=== PATIENT | female | born 1970 | race Caucasian/White ===

== ENCOUNTER 2016-11-01 10:48 | Emergency (ER) | payer MEDICAID ==
[~2016-11-01] VITALS: Ht 149.9 cm; Wt 72.6 kg
[2016-11-01 12:23] LABS: microscopic required? YES; urine erythrocyte TRACE (NEGATIVE)
[2016-11-01 12:24] LABS: BASOPHIL % 0.6 % (0-2); PLATELET COUNT 333 x10^3mcL (130-400)
[2016-11-01 12:40] LABS: CALCIUM 8.8 mg/dL (8.5-10.1); CARBON DIOXIDE 26.2 mmol/L (21-32); CHLORIDE SERUM 109 mmol/L (98-107); CREATININE SERUM 0.8 mg/dL (0.6-1.0); GFR1 > 60 mL/min; GLUCOSE SERUM 94 mg/dL (74-106); POTASSIUM SERUM 4.2 mmol/L (3.5-5.1); RED CELL DISTRIBUTION WIDTH 16.7 % (11.5-14.5); SODIUM SERUM 144 mmol/L (136-145)
[2016-11-01 12:44] LABS: ALBUMIN 3.4 g/dL (3.4-5.0); ALKALINE PHOSPHATASE 57 U/L (46-116); ALT/SGPT 26 U/L (14-59); AMYLASE 87 U/L (25-115); AST/SGOT 20 U/L (15-37); BILIRUBIN TOTAL 0.41 mg/dL (0.20-1.00); LIPASE 299 IU/L (73-393); TOTAL PROTEIN, SERUM 7.7 g/dL (6.4-8.2)
[2016-11-01 16:30] VITALS: BP 135/74
== END 2016-11-01 16:30 | disposition home or self-care (01) ==
LOC: ED 10:48
PROVIDERS: Emergency Medicine
DX: R10.30 Lower abdominal pain, unspecified (principal); Z88.5 Allergy status to narcotic agent
CPT/HCPCS: J1885; J2405; J3010; Q9967

== ENCOUNTER 2016-11-08 06:44 | Emergency (ER) | payer MEDICAID ==
[~2016-11-08] VITALS: Ht 149.9 cm; Wt 71.7 kg
[2016-11-08 08:07] VITALS: BP 147/75
== END 2016-11-08 08:07 | disposition home or self-care (01) ==
LOC: ED 06:44
DX: T78.40XA Allergy, unspecified, initial encounter (principal); R03.0 Elevated blood-pressure reading, without diagnosis of hypertension; Z88.5 Allergy status to narcotic agent; X58.XXXA Exposure to other specified factors, initial encounter

== ENCOUNTER 2017-12-26 12:52 | Emergency (ER) | payer MEDICAID ==
[~2017-12-26] VITALS: Ht 149.9 cm; Wt 67.1 kg
[2017-12-26 13:04] VITALS: BP 138/09; Ht 149.9 cm; Wt 67.1 kg
== END 2017-12-26 15:45 | disposition home or self-care (01) ==
LOC: ED 12:52
DX: M54.5 Low back pain (principal); I10 Essential (primary) hypertension; Z90.89 Acquired absence of other organs; Z90.49 Acquired absence of other specified parts of digestive tract; Z98.51 Tubal ligation status

== ENCOUNTER 2019-03-28 12:11 | Emergency (ER) | payer OTHER ==
[~2019-03-28] VITALS: Ht 149.9 cm; Wt 66.2 kg
[2019-03-28 12:22] VITALS: Ht 149.9 cm; Wt 66.2 kg
[2019-03-28 14:08] VITALS: BP 153/92
== END 2019-03-28 12:22 | disposition home or self-care (01) ==
LOC: ED 12:11
DX: M26.601 Right temporomandibular joint disorder, unspecified (principal); I10 Essential (primary) hypertension; Z98.51 Tubal ligation status; Z90.89 Acquired absence of other organs; Z90.49 Acquired absence of other specified parts of digestive tract; Z88.5 Allergy status to narcotic agent
CPT/HCPCS: J1885

== ENCOUNTER 2020-06-30 18:15 | Emergency (ER) | payer OTHER ==
[~2020-06-30] VITALS: Ht 149.9 cm; Wt 76.2 kg
[2020-06-30 18:32] VITALS: Ht 149.9 cm; Wt 76.2 kg
[2020-06-30 18:55] LABS: BASOPHIL % 1.1 % (0.2-1.3); PLATELET COUNT 337 x10^3mcL (179-408)
[2020-06-30 18:57] LABS: CALCIUM 8.1 mg/dL (8.5-10.1); CARBON DIOXIDE 25.8 mmol/L (21-32); CHLORIDE SERUM 103 mmol/L (98-107); GFR1 > 60 mL/min; GLUCOSE SERUM 115 mg/dL (74-106); POTASSIUM SERUM 3.6 mmol/L (3.5-5.1); SODIUM SERUM 137 mmol/L (136-145)
[2020-06-30 19:00] LABS: RED CELL DISTRIBUTION WIDTH 18.9 % (12.3-17.7)
[2020-06-30 19:01] LABS: ALBUMIN 3.4 g/dL (3.4-5.0); ALKALINE PHOSPHATASE 88 U/L (46-116); ALT/SGPT 45 U/L (14-59); AST/SGOT 36 U/L (15-37); BILIRUBIN TOTAL 0.26 mg/dL (0.20-1.00); LIPASE 357 IU/L (73-393); TOTAL PROTEIN, SERUM 7.7 g/dL (6.4-8.2)
[2020-06-30 19:35] LABS: rbc morphology (normal/abnorm) ABNORMAL (NORMAL)
[2020-06-30 19:36] LABS: ovalocyte/elliptocyte 1+; tear drop cell (dacryocyte) 1+
[2020-06-30] MEDS ORDERED: FLAGYL500 MG PO (20:32)
[2020-06-30] MEDS ORDERED: NOR10T PO (20:32)
[2020-06-30] MEDS ORDERED: BACTRIM DS1 TAB PO (20:32)
[2020-06-30] MEDS ORDERED: MOT800 PO (20:32)
[2020-06-30 20:40] VITALS: BP 150/80
== END 2020-06-30 20:40 | disposition home or self-care (01) ==
LOC: ED 18:15
DX: K57.32 Diverticulitis of large intestine without perforation or abscess without bleeding (principal); I10 Essential (primary) hypertension; Z90.89 Acquired absence of other organs; Z98.51 Tubal ligation status; Z90.49 Acquired absence of other specified parts of digestive tract; Z88.6 Allergy status to analgesic agent
CPT/HCPCS: J1885

== ENCOUNTER 2020-07-07 13:42 | Inpatient (IN) | payer OTHER ==
[~2020-07-07] VITALS: Ht 149.9 cm; Wt 75.4 kg
[~2020-07-07 13:42] MED LIST: BACTRIM DS1 TAB PO; FLAGYL500 MG PO; MOT800 PO; NOR10T PO
[2020-07-07 13:57] VITALS: Ht 149.9 cm; Wt 75.4 kg
[2020-07-07 14:52] LABS: CALCIUM 8.8 mg/dL (8.5-10.1); CARBON DIOXIDE 22.5 mmol/L (21-32); CHLORIDE SERUM 103 mmol/L (98-107); GFR1 > 60 mL/min; GLUCOSE SERUM 93 mg/dL (74-106); SODIUM SERUM 137 mmol/L (136-145)
[2020-07-07 14:55] LABS: PLATELET COUNT 341 x10^3mcL (179-408)
[2020-07-07 14:56] LABS: ALBUMIN 3.7 g/dL (3.4-5.0); ALKALINE PHOSPHATASE 72 U/L (46-116); ALT/SGPT 56 U/L (14-59); AST/SGOT 54 U/L (15-37); BILIRUBIN TOTAL 0.3 mg/dL (0.20-1.00); LIPASE 319 IU/L (73-393); TOTAL PROTEIN, SERUM 8.2 g/dL (6.4-8.2)
[2020-07-07 15:01] LABS: RED CELL DISTRIBUTION WIDTH 20.2 % (12.3-17.7)
[2020-07-07 15:12] LABS: rbc morphology (normal/abnorm) ABNORMAL (NORMAL)
[2020-07-07 15:14] LABS: ovalocyte/elliptocyte 1+
[2020-07-07 15:30] LABS: UA SPECIFIC GRAVITY >=1.030 (1.005-1.035); microscopic required? YES; urine erythrocyte NEGATIVE (NEGATIVE)
[2020-07-07] MEDS ORDERED: HORIZANT300 MG PO (16:10)
[2020-07-07] MEDS ORDERED: PERCOCET1 TAB PO (16:10)
[2020-07-07] MEDS ORDERED: BACLOFEN5 MG PO (16:11)
[2020-07-07] MEDS ORDERED: LIPITOR20 MG (16:11)
[2020-07-07 17:54] LABS: MAGNESIUM 2.1 mg/dL (1.8-2.4)
[2020-07-07 17:55] LABS: CHOLESTEROL/HDL RATIO 6.3
[2020-07-07 18:33] VITALS: BP 121/73
[2020-07-08 05:15] VITALS: BP 129/90
[2020-07-08 06:50] LABS: CALCIUM 8.5 mg/dL (8.5-10.1); CARBON DIOXIDE 23.2 mmol/L (21-32); CHLORIDE SERUM 103 mmol/L (98-107); GFR1 > 60 mL/min; GLUCOSE SERUM 97 mg/dL (74-106); POTASSIUM SERUM 4.5 mmol/L (3.5-5.1); SODIUM SERUM 135 mmol/L (136-145)
[2020-07-08 06:52] LABS: PLATELET COUNT 340 x10^3mcL (179-408)
[2020-07-08 06:55] LABS: RED CELL DISTRIBUTION WIDTH 19.7 % (12.3-17.7)
[2020-07-08 06:56] LABS: rbc morphology (normal/abnorm) ABNORMAL (NORMAL)
[2020-07-08 09:06] VITALS: BP 122/70
[2020-07-08 12:04] VITALS: BP 116/81
[2020-07-08 16:00] VITALS: BP 117/81
[2020-07-08 16:34] VITALS: BP 117/81
== END 2020-07-08 17:30 | disposition home or self-care (01) | DRG 244 ==
LOC: ED 13:42 → DU 15:55
PROVIDERS: Emergency Medicine; ADMIT Internal Medicine; ATTEND Internal Medicine
DX: K57.92 Diverticulitis of intestine, part unspecified, without perforation or abscess without bleeding (principal); R31.0 Gross hematuria; Z79.82 Long term (current) use of aspirin; Z88.5 Allergy status to narcotic agent; Z90.49 Acquired absence of other specified parts of digestive tract; Z98.51 Tubal ligation status
CPT/HCPCS: 83880; G0378; J2270; J2405; J7030